=== PATIENT | male | born 1985 | race Caucasian/White ===

== ENCOUNTER 2020-08-07 08:20 | Outpatient (CLI) | payer OTHER ==
[2020-08-07 10:09] LABS: Blood Urea Nitrogen 12 mg/dL (9-20)
--- NOTE | 2020-08-07 12:55 | Cat Scan Report ---
CT PELVIS WITH CONTRAST HISTORY: Anorectal pain COMPARISON: None available TECHNIQUE: CT images of the pelvis were obtained following administration of intravenous contrast. CONTRAST: 100 ml of Omnipaque 300 FINDINGS: Moderate to large colonic stool burden. There is no colonic wall thickening or pericolonic inflammato ry stranding throughout the rectum, sigmoid, and visualized portions of the ascending/transverse/desc ending colon. No evidence of bowel obstruction. Appendix is visualized and is normal. No evidence of dilation of the renal collecting system. The bladder and prostate gland are unremarkab le. There is no free fluid or adenopathy. Visualized portions of the abdominal aorta and major branching vessels are normal in caliber. Soft tissues are unremarkable. No evidence of perianal collection or inflammatory stranding. No acute osseous findings. IMPRESSION: 1. No acute abnormality. 2. Moderate to large colonic stool burden, may reflect constipation. No evidence of colitis. Signer Name: Prosper Larry MD Signed: 08/07/2020 12:50 PM Workstation Name: [id number]
== END 2020-08-07 08:21 | disposition home or self-care (01) ==
LOC: US 08:20
PROVIDERS: ATTEND Specialist
DX: R19.5 Other fecal abnormalities (principal); K62.89 Other specified diseases of anus and rectum; R10.2 Pelvic and perineal pain
CPT/HCPCS: 36415; 72193; 82565; 84520; Q9967